=== PATIENT | male | born 1955 | race Caucasian/White ===

== ENCOUNTER 2020-10-05 15:21 | Emergency (ER) | payer OTHER, SELFPAY ==
--- NOTE | ~2020-10-05 | XR_ITS ---
EXAMINATION: XR foot LT min 3V DATE: 10/05/2020 16:08 INDICATION: Left foot pain TECHNIQUE: Dorsoplantar, lateral, and 2 oblique views of the affected foot were obtained. COMPARISON: None. FINDINGS: Dorsal lateral soft tissue swelling is seen near the fifth metatarsal. There is a subtle co rtical defect in the lateral shaft of the fifth metatarsal. There are surgical changes at the third m etatarsophalangeal joint. 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 IMPRESSION: 1. Subtle cortical defect in the shaft of the fifth metatarsal which could reflect a trauma related p uncture injury. Reviewed, dictated and finalized at location A. IMPRESSION: 1. Subtle cortical defect in the shaft of the fifth metatarsal which could refl ect a trauma related puncture injury.
[2020-10-05 15:30] VITALS: BP 132/70; PULSE 57; RESP 16; TEMP 36.3; O2SAT 96
--- NOTE | 2020-10-05 15:53 | ED.WOUNDLAC ---
HPI - Wound/Laceration General Chief Complaint: Wound/Laceration Stated Complaint: Cut on left Foot Time Seen by Provider: 10/05/20 15:53 Source: patient Mode of arrival: ambulatory Limitations: no limitations History of Present Illness HPI narrative: Sohail Valdes is a 65 yo male with a PMH of arthritis, BPH, cholesterol, comes to [facility] with 3 small lacerations to the left lateral distal foot after dropping a pipe on the open end of the foot an hour POA. Has some uncontrolled bleeding initially and a large hematoma over the site Related Data Home Medications Medication Instructions Recorded Confirmed alfuzosin 10 mg PO DAILY 10/05/20 10/05/20 aspirin [Adult Low Dose Aspirin] 81 mg PO DAILY 10/05/20 10/05/20 celecoxib [Celebrex] 200 mg PO BID 10/05/20 10/05/20 loratadine 10 mg PO DAILY 10/05/20 10/05/20 simvastatin 10 mg PO DAILY 10/05/20 10/05/20 tadalafil [Cialis] 5 mg PO DAILY 10/05/20 10/05/20 Allergies Allergy/AdvReac Type Severity Reaction Status Date / Time erythromycin base Allergy Abdominal Verified 10/05/20 15:43 Pain Review of Systems Review of Systems: Narrative: CONSTITUTIONAL: Denies fever, chills, sweats. EYES: Denies visual changes, redness, discharge. ENT: Denies rhinorrhea, congestion, sore throat, otalgia. CARDIOVASCULAR: Denies chest pain, palpitations, edema. RESPIRATORY: Denies dyspnea, wheezing, cough GASTROINTESTINAL: Denies abdominal pain, nausea, vomiting, diarrhea. GENITOURINARY: Denies dysuria, hematuria, abnormal discharge SKIN: Denies rash or itching. 3 Small laceration to dorsum of left foot NEUROLOGIC: Denies numbness, or focal weakness. PSYCHIATRIC: Denies anxiety or depression. [facility] Past Medical History Medical History (Updated 10/05/20 @ 17:03 by Su Esteves CNP) Arthritis Borderline high cholesterol BPH (benign prostatic hyperplasia) Family History Family History Other Heart disease Social History Social History (Updated 10/05/20 @ 16:51 by Su Esteves CNP) Smoking status: Never smoker Alcohol intake: current Exam Narrative: Exam Narrative: GENERAL: This is a well-nourished, well-developed patient, in mild distress. HEAD: normocephalic, atraumatic. EYES: Sclera clear/white. Vision is grossly intact. EARS: External ears normal, Hearing grossly intact. NOSE: External nose normal without nasal discharge, nares without redness, no rhinorrhea. THROAT: Mucous membranes moist, NECK: Neck supple, CARDIOVASCULAR: Regular rate and rhythm without murmurs, gallops, or rubs. RESPIRATORY: Clear to auscultation. Breath sounds equal bilaterally. No wheezes, rales, or rhonchi. GASTROINTESTINAL: Abdomen soft, SKIN: warm, intact with no suspicious lesions or rash, good texture and turgor. NEURO: awake, alert, and oriented to person, place and time. There were no obvious focal neurologic abnormalities. Steady gait EXTREMITIES: Normal range of motion. Laceration on dorsum of lateral side of left distal foot, 2 of them are about 0.25 cm in length that we will need to suture the third 1 is very superficial and just through the skin-large hematoma around the 3 lacerations BACK: Nontender without deformity Course Course Emergency Course: Patient came to the emergency room after dropping open pipe on foot and has 3 small lacerations x-ray of the left foot showed subtle cortical defect in the shaft of the fifth metatarsal which could be reflective traumatic neck related puncture injury 2 sutures in each of the 2 smaller lacks and 1 g of Rocephin since this is classified as an open fracture [place] given for pain 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
[2020-10-05] MEDS: cefTRIAXone 1 GM VIAL IM (16:40)
[2020-10-05] MEDS: LIDOCAINE HCL 1% LOCAL INJ 20 ML VIAL 2.1 ML IM (16:41)
== END 2020-10-05 17:08 | disposition home or self-care (01) ==
PROVIDERS: Emergency Provider Nurse Practitioner
DX: S91.312A Laceration without foreign body, left foot, initial encounter (principal); W20.8XXA Other cause of strike by thrown, projected or falling object, initial encounter; M19.90 Unspecified osteoarthritis, unspecified site; N40.0 Benign prostatic hyperplasia without lower urinary tract symptoms
CPT/HCPCS: 12001; 73630; 96372; 99213; G0463; J0696